=== PATIENT | female | born 1970 | race Caucasian/White ===

== ENCOUNTER 2019-08-10 15:19 | Emergency (ER) | payer SELFPAY ==
[~2019-08-10] VITALS: Ht 170.2 cm; Wt 58.1 kg
[~2019-08-10 15:19] MED LIST: CIPR500T4 PO; SULF-58 PO; VIC PO
[2019-08-10 15:24] VITALS: BP 158/111
--- NOTE | 2019-08-10 15:35 | NUR ---
Patient ambulated to bed 6 with family. RN evaluating patient at bedside.
--- NOTE | 2019-08-10 15:42 | NUR ---
PT BIB PARTNER C/O CONSTANT NON RADIATING CHEST PAIN 8/10 X4 DAYS AND COUGH X 3 WEEKS , DENIES N/V/D. PT STATES RELIEF IF LAYS ON LT SIDE, AND HURTS TO TAKE A DEEP BREATH/COUGH. PT IS TACHYCARDIC AT 115 BPM AND DIASTOLIC ELEVATED BP 158/111. PT REPORTS DIFFICULTY BREATHING. RR EVEN AND NON-LABORED, BREATH SOUNDS CLEAR THROUHOUT, PT SKIN COLOR WNL, CAP REFIL <3 SEC. VSS. ER MD TO SEE PT. HX: GALSTONES, KIDNEY STONES, HTN, CYSTS RX: NONE
--- NOTE | 2019-08-10 15:45 | NUR ---
LAB AT BEDSIDE
--- NOTE | 2019-08-10 15:50 | NUR ---
X-RAY AT BEDSIDE
[2019-08-10 16:07] LABS: BASOPHILS % (AUTO) 0.5 % (0.0-2.0); EOSINOPHILS # (AUTO) 0.1 K/uL (0-0.4); EOSINOPHILS % (AUTO) 1.1 % (0.0-4.0); HEMATOCRIT 44.8 % (36-48); HEMOGLOBIN 14.9 g/dL (12.0-16.0); LYMPHOCYTES # (AUTO) 2.2 K/uL (2.5-16.5); LYMPHOCYTES % (AUTO) 30.1 % (20.5-51.1); MEAN CORPUSCULAR HEMOGLOBIN 32 pg (27-31); MEAN CORPUSCULAR HGB CONC 33 g/dL (33-37); MONOCYTES # (AUTO) 0.4 K/uL (0.8-1.0); MONOCYTES % (AUTO) 5.7 % (1.7-9.3); NEUTROPHILS # (AUTO) 4.6 K/uL (1.8-7.7); NEUTROPHILS % (AUTO) 62.6 % (42.2-75.2); PLATELET COUNT (AUTO) 340 K/uL (140-450); RED BLOOD CELL COUNT(AUTO) 4.62 MIL/uL (4.20-5.40); RED CELL DISTRIBUTION WIDTH 13.1 % (11.6-13.7); WHITE BLOOD COUNT (AUTO) 7.4 K/uL (4.8-10.8)
[2019-08-10 16:14] LABS: ALBUMIN 3.6 g/dL (3.4-5.0); ANION GAP 12.1 (8-16); CARBON DIOXIDE 29.7 mmol/L (21-32); CREATININE 0.9 mg/dL (0.6-1.3); POTASSIUM 3.8 mmol/L (3.5-5.1); TOTAL BILIRUBIN 0.5 mg/dL (0.0-1.0)
--- NOTE | 2019-08-10 18:09 | NUR ---
ER AT BEDSIDE WITH U/S FOR BEDSIDE PROCEDURE AT THIS TIME
[2019-08-10 18:24] VITALS: BP 163/102
--- NOTE | 2019-08-10 18:24 | NUR ---
Patient discharged with v/s stable. Written and verbal after care instructions given and explained. Patient alert, oriented and verbalized understanding of instructions. Ambulatory with steady gait. All questions addressed prior to discharge. ID band removed. Patient advised to follow up with PMD. Rx of ALBUTEROL, IBUPROFEN given. Patient educated on indication of medication including possible reaction and side effects. Opportunity to ask questions provided and answered.
== END 2019-08-10 18:24 | disposition home or self-care (01) ==
LOC: MED 15:19
DX: R07.89 Other chest pain (principal); R05 Cough; R06.7 Sneezing; J45.909 Unspecified asthma, uncomplicated; I10 Essential (primary) hypertension; K80.80 Other cholelithiasis without obstruction; Z87.442 Personal history of urinary calculi; Z98.890 Other specified postprocedural states; Z79.899 Other long term (current) drug therapy
CPT/HCPCS: 36415; 71045; 80053; 84484; 85025; 93005; 99284